=== PATIENT | male | born 1965 | race Caucasian/White ===

== ENCOUNTER 2017-03-11 05:36 | Emergency (ER) | payer OTHER ==
--- NOTE | 2017-03-11 06:32 | ER PHYSICIAN DOCUMENTATION ---
Physician Documentation [facility] Name:Miguel Hogan Age:51 yrs Sex:Male :1965 Arrival Date:03/11/2017 Time:05:36 Bed4 Private MD: Miguel Stiles Disposition: 03/11/17 06:15 Discharged to Home/Self Care. Impression: Acute Back Pain. - Condition is Good. - Discharge Instructions: BACK PAIN (Acute or Chronic). - Prescriptions for Percocet 5- 325 mg Oral - take 1 tablet by ORAL route every 6 hours As needed; 30 tablet. Prednisone 20 mg Oral Tablet - take 2 tablet by ORAL route once daily for 5 days; 10 tablet. - Medical Reconciliation form form. - Follow up: Private Physician; When: As needed; Reason: Continuance of care. - Problem is new. - Symptoms have improved. HPI: 03/11 06:29 This 51 yrs old Male presents to ER via Walk In with complaints of Back Pain. 06:29 The patient presents with pain that is acute, and an injury. The symptoms are located jm in the low back. Onset: The symptoms/episode began/occurred today. Associated signs and symptoms: Pertinent negatives: numbness, tingling, urinary retention. Historical: - Allergies: No known drug Allergies; - Home Meds: 1. glyperide 2. Metformin Oral - PMHx: Diabetes - NIDDM; Hypertension; - PSHx: spinal fusion; - Tetanus: < 10 years. - Ebola Screening: : Patient negative for fever greater than or equal to 101.5 degrees Fahrenheit, and additional compatible Ebola Virus Disease symptoms. Patient denies exposure to infectious person. Patient denies travel to an Ebola-affected area in the 21 days before illness onset. No symptoms or risks identified at this time. . - Immunization history: Pneumococcal vaccine is up to date, Flu Vaccine < 1 year. - Social history: Smoking status: Patient states was never smoker of tobacco. Patient uses alcohol occasionally. Patient/guardian denies using street drugs. ROS: 06:30 Constitutional: Negative for body aches, fever. jm 06:30 Back: Positive for pain with movement, radiated pain. Exam: 06:31 Constitutional: The patient appears alert, awake, obese. 06:31 Abdomen/GI: Bowel sounds: normal, Palpation: abdomen is soft and non-tender. 06:31 Back: ROM is normal, SI joint pain on the L. 06:31 Neuro: Mentation: is normal, Motor: strength is 5/5 in all extremities, Sensation: is normal, Gait: is steady. 06:31 Psych: Behavior/mood is pleasant, cooperative, Affect is calm. Vital Signs: 05:54 BP 155 / 82; Pulse 64; Resp 15; Temp 98.8; Pulse Ox 96% on R/A; Weight 127.01 kg; mk2 Height 5 ft. 11 in. (180.34 cm); Pain 7/10; 06:31 BP 142 / 71; Pulse 74; Resp 15; Pulse Ox 96% on R/A; Pain 4/10; mk2 05:54 Body Mass Index 39.05 (127.01 kg, 180.34 cm) 2 MDM: 06:00 Patient medically screened. 06:31 Differential diagnosis:. Differential diagnosis: herniated disc. SI stiffness. Data reviewed: vital signs, nurses notes, and as a result, I will discharge patient. Counseling: I had a detailed discussion with the patient and/or guardian regarding: the historical points, exam findings, and any diagnostic results supporting the discharge/admit diagnosis, the need for outpatient follow up, with the patient's primary care provider. Medication response: The patient's symptoms have improved, Dilaudid. Dispensed Medications: 06:20 Drug: Dilaudid 2 mg; Route: IM; Site: left gluteus; 2 06:30 Follow up: Response: Pain is decreased 2 06:30 Drug: predniSONE 40 mg; Route: PO; 2 06:31 Follow up: Response: No adverse reaction 2 Signatures: Miguel Velazco MD MD jm Kruger, Meg, RN RN mk2
--- NOTE | 2017-03-11 06:32 | ER NURSING DOCUMENTATION ---
Nurse's Notes [facility] Name:Miguel Hogan Age:51 yrs Sex:Male :1965 Arrival Date:03/11/2017 Time:05:36 Bed4 Private MD: Diagnosis:Acute Back Pain Presentation: 03/11 05:46 Acuity: CASSY 4 2 05:51 Presenting complaint: Patient states: I had a CT scan before I came here but I think I mk2 have a bone spur in my lower back and a bulding disk and its making me hurt so bad! Its been worse here. Transition of care: Home. 05:51 Method Of Arrival: Walk In 2 05:52 Care prior to arrival: Medication(s) given: Tylenol. 2 Triage Assessment: 05:53 General: Appears uncomfortable, Behavior is cooperative, pleasant. Pain: Complains of mk2 pain in lumbar area Pain currently is 7 out of 10 on a pain scale. Neuro: No deficits noted. Respiratory: Breath sounds are clear bilaterally. GI: No deficits noted. : Denies inability to void, pain. Musculoskeletal: Circulation, motion, and sensation intact Capillary refill. Historical: - Allergies: No known drug Allergies; - Home Meds: 1. glyperide 2. Metformin Oral - PMHx: Diabetes - NIDDM; Hypertension; - PSHx: spinal fusion; - Tetanus: < 10 years. - Ebola Screening: : Patient negative for fever greater than or equal to 101.5 degrees Fahrenheit, and additional compatible Ebola Virus Disease symptoms. Patient denies exposure to infectious person. Patient denies travel to an Ebola-affected area in the 21 days before illness onset. No symptoms or risks identified at this time. . - Immunization history: Pneumococcal vaccine is up to date, Flu Vaccine < 1 year. - Social history: Smoking status: Patient states was never smoker of tobacco. Patient uses alcohol occasionally. Patient/guardian denies using street drugs. Screenin:55 Infectious Disease Risk None. Abuse screen: Denies threats or abuse. Nutritional 2 screening: No deficits noted. Assessment: 05:55 See Triage Assessment done by same RN. 2 Vital Signs: 05:54 BP 155 / 82; Pulse 64; Resp 15; Temp 98.8; Pulse Ox 96% on R/A; Weight 127.01 kg; mk2 Height 5 ft. 11 in. (180.34 cm); Pain 7/10; 06:31 BP 142 / 71; Pulse 74; Resp 15; Pulse Ox 96% on R/A; Pain 4/10; mk2 05:54 Body Mass Index 39.05 (127.01 kg, 180.34 cm) [facility] ED Course: 05:37 Patient arrived in ED. [facility] 05:46 Elsi Franklin, RN is Primary Nurse. [facility] 05:46 Triage completed. [facility] 05:55 Arm band placed on Bed in low position Call Light in Reach Gowned HOB Elevated Side 2 rails up x1. 06:00 Miguel Velazco MD is Attending Physician. 06:32 Valuables Remains with patient. [facility] Administered Medications: 06:20 Drug: Dilaudid 2 mg; Route: IM; Site: left gluteus; 2 06:30 Follow up: Response: Pain is decreased [facility] 06:30 Drug: predniSONE 40 mg; Route: PO; [facility] 06:31 Follow up: Response: No adverse reaction [facility] Outcome: 06:15 Discharge ordered by . 06:31 Discharged to home ambulatory. [facility] 06:31 Condition: improved 06:31 Discharge instructions given to patient, Instructed on discharge instructions, follow up and referral plans. medication usage, Prescriptions given X 2. 06:32 Patient left the ED. [facility] 07 09:07 Discharge F/U Call: Unable to reach: no answer nf Signatures: Debora Lim, RN RN Miguel Preston MD MD jm Kruger, Meg, RN RN 2 Beena Martin [facility]
[2017-03-11] MEDS ORDERED: predniSONE 10 MG TABLET PO ONE (06:41)
== END 2017-03-11 06:32 | disposition home or self-care (01) ==
LOC: ER 05:36
DX: M54.5 Low back pain (principal); I10 Essential (primary) hypertension; E11.9 Type 2 diabetes mellitus without complications; Z79.899 Other long term (current) drug therapy
CPT/HCPCS: 96372; 99283; J1170; J7512